=== PATIENT | male | born 1995 | race Caucasian/White ===

== ENCOUNTER 2022-10-15 16:50 | Emergency (ER) | payer MEDICARE, OTHER | END 2022-10-15 20:07 | disposition home or self-care (01) | LOC: CSHERS 16:50 | DX: M62.838 Other muscle spasm (principal); M54.2 Cervicalgia; X50.9XXA Other and unspecified overexertion or strenuous movements or postures, initial encounter | CPT/HCPCS: 70450 ==

== ENCOUNTER 2023-04-23 09:57 | Emergency (ER) | payer BC | END 2023-04-23 10:40 | disposition home or self-care (01) | LOC: CSHERS 09:57 | DX: S06.0X0A Concussion without loss of consciousness, initial encounter (principal); W22.8XXA Striking against or struck by other objects, initial encounter | CPT/HCPCS: 99283 ==

== ENCOUNTER 2025-03-02 04:11 | Emergency (ER) | payer OTHER ==
[2025-03-02 04:58] LABS: #Basophils 0.04 10x3/uL (0.0-0.2); #Eosinophils 0.45 10x3/uL (0.0-0.5); #Monocytes 0.69 10x3/uL (0.0-1.1); #Neutrophils 5.32 10x3/uL (1.5-8.4); %Basophils 0.4 % (0.0-2.0); %Eosinophils 4.4 % (0.0-6.0); %Lymphocytes 36.0 % (18.0-47.0); %Monocytes 6.8 % (0.0-10.0); %Neutrophils 52.0 % (40.0-75.0); Hematocrit 43.9 % (38.8-50.0); Hemoglobin 15.0 g/dL (13.5-17.5); Mean Corpuscular Hemoglobin 29.4 pg (27.0-33.0); Mean Corpuscular Volume 85.9 fL (81.2-95.1); Platelet Count 285 10x3/uL (150-450); Red Blood Cell (RBC) Count 5.11 10x6/uL (4.32-5.72); White Blood Cell (WBC) Count 10.22 10x3/uL (3.5-10.5)
[2025-03-02 05:22] LABS: ALT (SGPT) 38 U/L (Less than 45); AST (SGOT) 31 U/L (11-34); Albumin 4.1 g/dL (3.1-4.5); Alkaline Phosphatase 72 U/L (40-110); Anion Gap 15 mmol/L (10-20); BUN (Urea Nitrogen) 20 mg/dL (8.9-20.6); Bilirubin, Total 0.3 mg/dL (0.3-1.2); Calc. Creatinine Clearance 0 mL/min (70-130); Calcium 9.0 mg/dL (7.8-10.44); Carbon Dioxide 21 mmol/L (22-29); Chloride 106 mmol/L (98-107); Globulin 3.4 g/dL (2.4-3.5); Glucose 114 mg/dL (70-105); Potassium 3.9 mmol/L (3.5-5.1); Sodium 138 mmol/L (136-145)
[2025-03-02 05:29] LABS: Troponin I Less than 0.010 ng/mL (< 0.028)
== END 2025-03-02 06:35 | disposition home or self-care (01) ==
LOC: CSHERS 04:11
DX: R55 Syncope and collapse (principal); S00.531A Contusion of lip, initial encounter; E86.0 Dehydration; F17.210 Nicotine dependence, cigarettes, uncomplicated; F17.290 Nicotine dependence, other tobacco product, uncomplicated; X58.XXXA Exposure to other specified factors, initial encounter
CPT/HCPCS: 70450; 70486; 71250; 72125; 80053; 83880; 84484; 85025; 93005